=== PATIENT | female | born 1990 | race Caucasian/White ===

== ENCOUNTER 2017-02-13 11:08 | Emergency (ER) | payer OTHER ==
[~2017-02-13] VITALS: Ht 157.5 cm; Wt 59.0 kg
[~2017-02-13 11:08] MED LIST: PREN1TAB49 PO
[2017-02-13 11:11] VITALS: Ht 157.5 cm; Wt 59.0 kg
[2017-02-13] MEDS ORDERED: HYDROCODONE/APAP (5/325) TAB PO ONE (12:30)
--- NOTE | 2017-02-13 13:07 | ERD ---
ER Documentation Chief Complaint Date/Time DATE: 02/13/17 TIME: 13:06 Chief Complaint pelvic pain x 3 days HPI 26-year-old female with history of left-sided ovarian cyst comes emergency department diffuse pelvic pain for the past 3 to it is worse on the left hip she also reports some pain on the right pelvic region, described as achy, worse since she started her menstrual cycle 3 days ago. She reports that she has an IUD, and has been spotting since it was placed in September of this year. She does have bleeding but she reports to be normal like a regular menstrual cycle. She reports that she had an ultrasound in 3 weeks ago that showed a 9 cm possible cyst on left ovary. She denies any fever, chills, nausea vomiting. She has not had any vaginal discharge or odor. ROS All systems reviewed and are negative except as per history of present illness. Medications Home Meds Active Scripts Naproxen* (Naprosyn*) 500 Mg Tablet, 500 MG PO BID Y for PAIN AND/OR INFLAMMATION, #30 TAB Prov:RANDOLPH CALLEJAS PA-C 02/13/17 Hydrocodone/Acetaminophen (Peabody 5-325 Tablet) 1 Each Tablet, 1 TAB PO Q6H Y for PAIN, #7 TAB Prov:RANDOLPH CALLEJAS PA-C 02/13/17 Reported Medications Vits W-Ca,Fe,Fa(<1MG) () 1 Tab Tablet, 1 TAB PO 09/05/12 Allergies Allergies: Coded Allergies: No Known Allergies (Verified Allergy, Unknown, 09/05/12) PMhx/Soc Medical and Surgical Hx: pt denies Medical Hx, pt denies Surgical Hx Hx Miscellaneous Medical Probl: Yes (OVARIAN CYST ) Hx Alcohol Use: No Hx Substance Use: No Hx Tobacco Use: No Physical Exam Vitals Vital Signs Date Time Temp Pulse Resp B/P Pulse Ox O2 Delivery O2 Flow Rate FiO2 02/13/17 11:11 98.3 84 18 106/68 97 Physical Exam General: Well-developed, well-nourished. The patient appears in no acute distress. HEENT: Head is normocephalic, atraumatic. No scleral icterus. Neck: Supple. Nontender. Lungs: Clear to auscultation. Normal air movement. Heart: Regular rate and rhythm. S1 and S2 are normal. No murmurs, gallops, or rubs. Abdomen: Nondistended. There is lower pelvic pain upon palpation, there is no rebound pain or guarding. No McBurney's tenderness per Extremities: No clubbing or cyanosis. Moving extremities x 4. No weakness. Neurologic: Alert and oriented 3. No focal deficits. Normal speech and gait. Skin: Normal turgor. No rash or lesions. Results 24 hrs Laboratory Tests Test 02/13/17 12:25 Urine Color LT. YELLOW Urine Clarity CLEAR Urine pH 6.0 Urine Specific [place] 1.015 Urine Ketones NEGATIVE Urine Nitrite NEGATIVE Urine Bilirubin NEGATIVE Urine Urobilinogen 1.0 E.U./dL Urine Leukocyte Esterase NEGATIVE Urine Microscopic RBC 2-5/HPF Urine Microscopic WBC 0-2/HPF Urine Hemoglobin 1+ Urine Glucose NEGATIVE% Urine Total Protein NEGATIVE Current Medications Medications (Trade) Dose Ordered Sig/Yanique Route PRN Reason Start Time Stop Time Status Last Admin Dose Admin Acetaminophen/ Hydrocodone Bitart (Pe[place]ody (5/325)) 1 tab ONCE ONCE PO 02/13/17 12:30 02/13/17 12:31 DC 02/13/17 12:37 PROCEDURE: US Pelvis CLINICAL INDICATION: Pelvic pain, h/o left ovarian cyst TECHNIQUE: Multiple sonographic images of the pelvis were obtained utilizing a transabdominal and endovaginal technique. The images were reviewed on a PACS workstation. COMPARISON: None. LMP: 02/10/2017 FINDINGS: The uterus measures 8.2 x 4.6 x 5.7 cm. The endometrial echo complex measures 7 mm in thickness. An appropriately positioned intrauterine device is noted. The uterus is heterogeneous and the junctional zone between the endometrium and myometrium is indistinct. The right ovary measures 2.8 x 1.8 x 2.7 cm. The left ovary measures 8.3 x 4.9 x 6.7 cm. There is normal vascular flow in both ovaries. There are 2 adjacent similar cystic lesions with posterior acoustic enhancement and uniform low level internal echoes in the left ovary measuring up to 5.0 cm and 4.0 cm. These are likely endometriomas. No significant pelvic free fluid is identified. IMPRESSION: Complex cystic lesion in the left ovary measuring up to 5.0 cm and 4.0 cm are likely endometriomas. Follow-up ultrasound in 6-12 weeks is recommended for further evaluation. The uterus is heterogeneous and the junctional zone between the endometrium and myometrium is indistinct. Findings suggest adenomyosis. Clinical correlation is recommended. RPTAT: EE Joaquín Purcell Physician Date Time Electronically viewed and signed by Joaquín Purcell Physician on 02/13/2017 13:44 Procedures/MDM ED course: Patient pain was controlled with Pe[place]ody in the emergency room. Urine is negative. MDM: 26-year-old female comes in with pelvic pain x 3 days, there is a complex cystic type structure seen on the left ovary on pelvic ultrasound today. It is 4 and 5 cm, patient does report having a 9 cm possible cyst being seen 3 weeks ago. Given that is the same size as it does not appear to be any infectious origin including a tubo-ovarian abscess. She reports that her pelvic pain started 3 days ago with her menses, this is likely from her menstrual cycle. No signs of an ectopic or adnexal masses seen today. 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 Departure Diagnosis: Primary Impression: Acute pain in female pelvis Condition: RANDOLPH Cullen PA-C February 13, 2017 13:07
[2017-02-13 13:16] LABS: ADD UMIC YES; URINE BILIRUBIN (Dip) NEGATIVE (NEGATIVE); URINE BLOOD (Dip) 1+ (NEGATIVE); URINE COLOR LT. YELLOW (YELLOW); URINE GLUCOSE (Dip) NEGATIVE (NEGATIVE); URINE KETONES (Dip) NEGATIVE (NEGATIVE); URINE LEUKOCYTE ESTERASE (Dip) NEGATIVE (NEGATIVE); URINE NITRITE (Dip) NEGATIVE (NEGATIVE); URINE TOTAL PROTEIN (Dip) NEGATIVE (NEGATIVE); URINE UROBILINOGEN (Dip) 1.0 E.U./dL (0.1-1.0)
--- NOTE | 2017-02-13 13:44 | RADRPT ---
PROCEDURE: US Pelvis CLINICAL INDICATION: Pelvic pain, h/o left ovarian cyst TECHNIQUE: Multiple sonographic images of the pelvis were obtained utilizing a transabdominal and endovaginal technique. The images were reviewed on a PACS workstation. COMPARISON: None. LMP: 02/10/2017 FINDINGS: The uterus measures 8.2 x 4.6 x 5.7 cm. The endometrial echo complex measures 7 mm in thickness. A n appropriately positioned intrauterine device is noted. The uterus is heterogeneous and the junctio nal zone between the endometrium and myometrium is indistinct. The right ovary measures 2.8 x 1.8 x 2.7 cm. The left ovary measures 8.3 x 4.9 x 6.7 cm. There is no rmal vascular flow in both ovaries. There are 2 adjacent similar cystic lesions with posterior acoustic enhancement and uniform low leve l internal echoes in the left ovary measuring up to 5.0 cm and 4.0 cm. These are likely endometriom as. No significant pelvic free fluid is identified. IMPRESSION: Complex cystic lesion in the left ovary measuring up to 5.0 cm and 4.0 cm are likely endometriomas. Follow-up ultrasound in 6-12 weeks is recommended for further evaluation. The uterus is heterogeneous and the junctional zone between the endometrium and myometrium is indist inct. Findings suggest adenomyosis. Clinical correlation is recommended. RPTAT: EE Physician Genaro Date Time Electronically viewed and signed by Physician Genaro on 02/13/2017 13:44 /
[2017-02-13] MEDS ORDERED: HYDR-906 PO (14:28)
[2017-02-13] MEDS ORDERED: NAPR-260 PO (14:28)
== END 2017-02-13 15:36 | disposition home or self-care (01) ==
LOC: FTE 11:08
DX: R10.2 Pelvic and perineal pain (principal)
CPT/HCPCS: 76830; 76856; 81001; Z7502; Z7610

== ENCOUNTER 2017-10-11 20:45 | Emergency (ER) | END 2017-10-11 21:28 | disposition home or self-care (01) ==